=== PATIENT | female | born 1940 | race Caucasian/White ===

== ENCOUNTER 2024-12-17 16:04 | Inpatient (IN) | payer OTHER ==
[2024-12-17] MEDS ORDERED: VANCOMYCIN 1,000 MG in DEXTROSE 5%-WATER - 250 ML IVPB ONE (17:43)
[2024-12-17 19:05] LABS: EOSINOPHILS # 0.68 x10^3/uL (0.04-0.36); HEMATOCRIT 41.9 % (34.1-44.9); HEMOGLOBIN 13.1 g/dL (11.2-15.7); MCHC 31.3 g/dl (32.2-35.5); MEAN CELL VOLUME 97.2 fl (79.4-94.8); MONOCYTE # 1.01 x10^3/uL (0.24-0.86); MONOCYTE % 7.5 % (4.7-12.5); PLATELET COUNT # 384 x10^3/uL (182-369); RDW 13.6 % (12.5-17.0)
[2024-12-17] MEDS ORDERED: VANCOMYCIN 1 GM PREMIX (F) 1 GM/200 ML BAG ONE (19:06)
[2024-12-17] MEDS: VANCOMYCIN 1 GM PREMIX (F) 1 GM/200 ML BAG IVPB ONE (19:10)
[2024-12-17 19:11] LABS: INR 1.12 (0.83-1.09); PROTHROMBIN TIME (PATIENT) 12.2 SEC (9.7-13.0)
[2024-12-17 19:14] LABS: ACTIVATED PTT 31.1 SECONDS (25.2-36.5)
[2024-12-17 19:33] LABS: POTASSIUM 4.4 mmol/L (3.5-5.1)
[2024-12-17 19:34] LABS: CALCIUM 9.1 mg/dL (8.5-10.1)
[2024-12-17 19:35] LABS: BLOOD UREA NITROGEN 29.8 mg/dL (7-18)
[2024-12-17 19:38] LABS: CREATININE 0.8 mg/dL (0.55-1.3)
[2024-12-17 20:17] LABS: ERYTHROCYTE SEDIMENTATION RATE 42 mm/hr (0-30)
[2024-12-18 01:07] VITALS: BMI 36.1
[2024-12-18] MEDS ORDERED: ACETAMINOPHEN 325 MG TABLET (FP) PO PRN (06:49)
[2024-12-18] MEDS ORDERED: VANCOMYCIN/WATER 1250 MG 1,250 MG/250 ML BAG IVPB SCH (07:00)
[2024-12-18] MEDS: LEVOTHYROXINE NA 88 MCG TABLET (FP) PO SCH (07:51)
[2024-12-18] MEDS: metFORMIN HCL 500 MG TABLET (FP) PO SCH (07:51)
[2024-12-18] MEDS: VANCOMYCIN/WATER 1250 MG 1,250 MG/250 ML BAG IVPB SCH (07:57)
[2024-12-18 08:29] LABS: POTASSIUM 3.9 mmol/L (3.5-5.1)
[2024-12-18 08:34] LABS: CALCIUM 8.8 mg/dL (8.5-10.1)
[2024-12-18 08:35] LABS: BLOOD UREA NITROGEN 24.3 mg/dL (7-18)
[2024-12-18 08:39] LABS: CREATININE 0.7 mg/dL (0.55-1.3)
[2024-12-18 09:17] LABS: ABSOLUTE IMMATURE GRANULOCYTES 0.11 x10^3/uL (0.0-0.031); EOSINOPHIL % 7.5 % (0.7-5.8); EOSINOPHILS # 0.89 x10^3/uL (0.04-0.36); HEMOGLOBIN 12.7 g/dL (11.2-15.7); MCHC 31.8 g/dl (32.2-35.5); MEAN CELL VOLUME 98.5 fl (79.4-94.8); MEAN PLT VOLUME 9.6 fl (9.4-12.3); MONOCYTE # 1.04 x10^3/uL (0.24-0.86); MONOCYTE % 8.8 % (4.7-12.5); PLATELET COUNT # 374 x10^3/uL (182-369); RDW 13.5 % (12.5-17.0)
[2024-12-18] MEDS: ASPIRIN 325 MG TABLET PO SCH (09:29)
[2024-12-18] MEDS: MULTIVITAMINS (DAILY MVI) TABLET (FP) PO SCH (09:29)
[2024-12-18] MEDS: FENOFIBRIC ACID 45 MG CAP PO SCH (09:29)
[2024-12-18] MEDS: ZINC SULFATE 220 MG CAPSULE (FP) PO SCH (09:29)
[2024-12-18] MEDS: ASCORBIC ACID 500 MG TABLET (FP) PO SCH (09:29)
[2024-12-18] MEDS: VALSARTAN 40 MG TABLET PO SCH (09:29)
[2024-12-18] MEDS: LIDOCAINE 4% PATCH TP SCH (09:30)
[2024-12-18] MEDS: ESCITALOPRAM OXALATE 10 MG TABLET PO SCH (09:31)
[2024-12-18] MEDS: INSULIN ASPART SLIDING SCALE (NOVOLOG) 1 VIAL SQ SCH (16:59)
[2024-12-18] MEDS: FEBUXOSTAT 40 MG TAB PO SCH (19:49)
[2024-12-18] MEDS: HEPARIN NA (PORCINE) 5,000 UNITS/ML 1ML VIAL SQ SCH (21:28)
[2024-12-18] MEDS: ATORVASTATIN CA 10 MG TABLET (FP) PO SCH (21:29)
[2024-12-18] MEDS: LIDOCAINE PATCH REMOVAL MC SCH (21:29)
[2024-12-19] MEDS: EMPAGLIFLOZIN (JARDIANCE) 10 MG TABLET PO SCH (06:05)
[2024-12-20 20:03] VITALS: BP 124/47; PULSE 66; RESP 18; TEMP 97.5
== END 2024-12-20 20:49 | DRG 602 ==
LOC: JER 16:04 → JERBED 17:39 → J7W 23:15 → OBSVTOIN 12-18 12:12
PROVIDERS: ADMIT Hospitalist; ATTEND Internal Medicine
PROC: 0J9K3ZX Drainage of Left Hand Subcutaneous Tissue and Fascia, Percutaneous Approach, Diagnostic (ICD-10-PCS; principal; 2024-12-18)
DX: L03.114 Cellulitis of left upper limb (principal); L89.313 Pressure ulcer of right buttock, stage 3; I10 Essential (primary) hypertension; E78.5 Hyperlipidemia, unspecified; F32.A Depression, unspecified; M48.061 Spinal stenosis, lumbar region without neurogenic claudication; E11.9 Type 2 diabetes mellitus without complications; E03.9 Hypothyroidism, unspecified; L08.9 Local infection of the skin and subcutaneous tissue, unspecified; E11.621 Type 2 diabetes mellitus with foot ulcer; L89.892 Pressure ulcer of other site, stage 2
CPT/HCPCS: 36415; 76882-TC-LT; 80048; 82962; 83036; 84550; 85025; 85610; 85651; 85730; 86140; 86850; 86900; 86901; 87040; 87635; 93005; 93010; 99285-25; G0378; G0480; J1644